=== PATIENT | female | born 1980 | race Caucasian/White ===

== ENCOUNTER 2020-12-20 09:15 | Emergency (ER) | payer MEDICAID ==
[~2020-12-20] VITALS: Ht 170.2 cm; Wt 109.0 kg
[~2020-12-20 09:15] MED LIST: BACL10TA PO; BUSP30TA PO; CELE100C PO; CIME400T PO; CYAN500L4 SL; DIVA250T PO; DIVA500T2 PO; DULO60CA7 PO; HYDR-2769 PO; LEVO50CA3 PO; OMEP40CA7 PO
--- NOTE | 2020-12-20 09:37 | PHYS DOC ---
Past Medical History Past Medical History: Other Additional Past Medical Histor: CHRONIC BACK PAIN, CELIAC,EPILEPSY Past Surgical History: , Hysterectomy, Tonsillectomy Smoking Status: Current Every Day Smoker Alcohol Use: None General Adult EDM: Chief Complaint: LOWEREXTREMITY INJURY HPI: HPI: Patient is a 40-year-old female who presents via EMS for fall. This was mechanical in nature. She was recently hospitalized and discharged at our facility after and operative reduction and internal fixation of her right tibia shaft fracture with intramedullary nail fixation on 12/11/[address] Caro. She reports she has been baseline health and doing well on discharge home. Reports she got up, got to the side of her bed in an attempt to stand to use her walker at the side of her back to ambulate, she reports suffering a left inversion ankle sprain and subsequently fell to the ground. She has acute pain to lateral left ankle and generalized pain to right lower extremity. She took all pain medications prior to sudden fall. Is on extensive medication list at home that includes Lyrica, OxyContin extended release 10 mg, and Percocet 10 Review of Systems: Review of Systems: Fourteen body systems of review of systems have been reviewed. See HPI for pertinent positives and negative responses, other samaniego all other systems are negative, non-pertinent or non-contributory Heart Score: C/O Chest Pain: No Risk Factors: Risk Factors: DM, Current or recent (<one month) smoker, HTN, HLP, family history of CAD, obesity. Risk Scores: Score 0 - 3: 2.5% MACE over next 6 weeks - Discharge Home Score 4 - 6: 20.3% MACE over next 6 weeks - Admit for Clinical Observation Score 7 - 10: 72.7% MACE over next 6 weeks - Early Invasive Strategies Allergies: Allergies: Allergies Coded Allergies Type Severity Reaction Last Updated Verified levetiracetam Allergy Intermediate 12/13/20 Yes levofloxacin Allergy Intermediate 12/13/20 Yes Physical Exam: PE: Constitutional: Well developed, well nourished, no acute distress, non-toxic appearance. HENT: Normocephalic, atraumatic, bilateral external ears normal, oropharynx moist, no oral exudates, nose normal. Eyes: PERRLA, EOMI, conjunctiva normal, no discharge. Neck: Normal range of motion, no tenderness, supple, no stridor. Cardiovascular: Heart rate regular, sinus rhythm, no murmurs rubs or gallops Lungs & Thorax: Bilateral breath sounds clear to auscultation Abdomen: Bowel sounds normal, soft, no tenderness, no masses, no pulsatile masses. Nonsurgical abdomen, no peritoneal signs Skin: Warm, dry, no erythema, no rash. Back: No tenderness, no CVA tenderness. Extremities: No cyanosis, no clubbing, ROM of left lower extremity intact, range of motion of right lower extremity limited due to pain that appears appropriate given surgical intervention performed 12/11/2020. 2+ dorsalis pedis and TP pulses bilaterally. Cap refill of all distal digits less than 3 seconds. There is mild edema of right lower extremity versus contralateral limb from knee downwards which is appropriate given recent surgical intervention, surgical sites are all well appearing with dressings all clear, dry and intact. Patient has point tenderness to left superior portion of lateral malleolus, base of right fifth metatarsal, and entirety of right lower extremity globally distal from knee. Examinations of bilateral hips and knees otherwise unremarkable Neurologic: Alert and oriented X 3, normal motor & sensory function to all x4 extremities, no focal deficits noted. Psychologic: Odd affect, judgement normal, anxious mood Current Patient Data: Vital Signs: Vital Signs Date Time Temp Pulse Resp B/P (MAP) Pulse Ox O2 Delivery O2 Flow Rate FiO2 12/20/20 09:22 97.6 84 18 117/73 (82) 93 Room Air 97.6 Vital Signs Date Time Temp Pulse Resp B/P (MAP) Pulse Ox O2 Delivery O2 Flow Rate FiO2 12/20/20 09:22 97.6 84 18 117/73 (82) 93 Room Air 97.6 EKG: EKG: [] Radiology/Procedures: Radiology/Procedures: Exam performed x-ray right tibia fibula, right foot and right ankle. HISTORY: Pain. History 70 2020. COMPARISON: X-ray right tibia fibula from 12/11/2020 Findings and impression: AP and lateral view of the right tibia fibula demonstrates interval open reduction internal fixation of a previously seen comminuted fracture mid to distal diaphysis of the tibia with 2 screws in the proximal portion and 2 screws distally. Minimally displaced fractures of the fibula are seen in the proximal and distal diaphysis. AP, lateral and oblique views of the right foot and ankle demonstrate a nondisplaced fracture proximal diaphysis of the fifth metatarsal. Vertically oriented lucency seen in the medial malleolus seen only on the AP projection perhaps represents a nondisplaced fracture.. There are surgical anchors overlying the lateral malleolus. There is extensive soft tissue swelling. Electronically signed by: Itzel Bello MD (12/20/2020 11:05 AM) [id number] Course & Med Decision Making: Course & Med Decision Making ABCs unremarkable. I disclosed entirety of ER findings and discussed most likely diagnosis of acute versus subacute right fifth metatarsal fracture and stable findings of right lower extremity status post recent surgical intervention. I discussed case with on-call orthopedic surgeon who advised immobilization is much of this possible of right foot. This is complicated given patient's numerous surgical sites. I discussed this conversation with patient, I discussed casting/splinting versus other modalities of care. Patient understood all treatment options and preferred leaving with surgical shoe/boot. She understands this could end up leading to suboptimal treatment of her right foot but would not compromise her ability to care for her surgical dressings and remaining fractures of right lower extremity. I also reviewed patient's concerning Ktracs history and history of numerous falls in the past. I discussed my concern for polypharmacy as she has prescribed numerous medications that put her at increased risk for falling. I disclosed this is likely contributing to patient's low O2 saturation at times when sleeping and at rest in addition to her longstanding history of falls. Patient reports this is being managed by her outpatient physicians, she does not want to change any of her medication regimen at this time. As such, I discussed and disclosed my concern and reiterated I would not be contributing by giving any high risk medications and so Tylenol was given this ER visit. Ultimately, plan of care discussed at length with need for close outpatient follow-up to review today's ER visit stressed, she has follow-up with orthopedic surgeon next week which I feel is appropriate. Strict return precautions were also discussed at length with good understanding by patient. Patient voiced understanding and agreement with the plan. Patient knows to come back for repeat evaluation if concerning signs or sy mptoms present prior to outpatient follow-up. Hemodynamically stable, ambulatory and well-appearing at time of disposition. Pb Disclaimer: Pb Disclaimer: This electronic medical record was generated, in whole or in part, using a voice recognition dictation system. Departure Departure Impression: Primary Impression: Nondisplaced fracture of fifth right metatarsal bone Additional Impression: Tibia/fibula fracture, shaft Disposition: 01 HOME / SELF CARE / HOMELESS Condition: STABLE Referrals: REG TAVERAS MD (PCP) Additional Instructions: It is likely that you suffered from an acute versus subacute closed fracture of your right fifth metatarsal. I disclosed I contacted the bone surgeon while in the ER and recommendations were made to immobilize this is much as possible. You decided to go home with a surgical boot and understood the importance of minimizing weightbearing to this joint. A Rest, Ice, Compression, Elevation (RICE) strategy may also be helpful in the acute phase. I did disclose my concern for your numerous prescriptions for high risk medications that could be contributing to your longstanding history and issues with falls. Please follow up with your primary doctor to discuss this further. Keep your scheduled appointment with the orthopedic surgeons next week. If any concerning signs or symptoms present prior to outpatient follow-up please do not hesitate to come back for repeat evaluation. It was a pleasure to take care of you and I wish you a speedy recovery RAYMOND SALES DO Dec 20, 2020 09:37
[2020-12-20] MEDS: ACETAMINOPHEN 500 MG TABLET PO ONE (09:45)
--- NOTE | 2020-12-20 11:07 | RAD ---
Exam performed x-ray right tibia fibula, right foot and right ankle. HISTORY: Pain. History 70 2020. COMPARISON: X-ray right tibia fibula from 12/11/2020 Findings and impression: AP and lateral view of the right tibia fibula demonstrates interval open reduction internal fixation of a previously seen comminuted fracture mid to distal diaphysis of the tibia with 2 screws in the pr oximal portion and 2 screws distally. Minimally displaced fractures of the fibula are seen in the pro ximal and distal diaphysis. AP, lateral and oblique views of the right foot and ankle demonstrate a nondisplaced fracture proxima l diaphysis of the fifth metatarsal. Vertically oriented lucency seen in the medial malleolus seen o nly on the AP projection perhaps represents a nondisplaced fracture.. There are surgical anchors over lying the lateral malleolus. There is extensive soft tissue swelling. Electronically signed by: Itzel Bello MD (12/20/2020 11:05 AM) [id number]
[2020-12-20 12:17] VITALS: BP 101/67
== END 2020-12-20 12:47 | disposition home or self-care (01) ==
LOC: MERGE 09:15 → ER 09:15
DX: S82.491A Other fracture of shaft of right fibula, initial encounter for closed fracture (principal); S82.201A Unspecified fracture of shaft of right tibia, initial encounter for closed fracture; G89.29 Other chronic pain; G40.909 Epilepsy, unspecified, not intractable, without status epilepticus; F17.200 Nicotine dependence, unspecified, uncomplicated; Z88.1 Allergy status to other antibiotic agents; Z88.8 Allergy status to other drugs, medicaments and biological substances; W18.39XA Other fall on same level, initial encounter; Y93.89 Activity, other specified; Y92.89 Other specified places as the place of occurrence of the external cause; Y99.8 Other external cause status
CPT/HCPCS: 73590; 73630; 99284; 73610-50

== ENCOUNTER → 2021-01-03 | Outpatient (CLI) | payer MEDICAID ==
[2020-12-20 12:17] VITALS: BP 101/67
[~2021-01-03] MED LIST changes: +DULO60CA6 PO; -DULO60CA7 PO
--- NOTE | 2021-01-14 09:07 | EEG ---
DATE OF SERVICE: 01/03/2021 EEG NUMBER: . OBJECTIVE: The patient is a 40-year-old female with a history of epilepsy. DESCRIPTION: This is a digital study. Electrodes were placed according to the international 10-20 system. Bipolar and referential montages are available. Activation procedures typically include hyperventilation and intermittent photic stimulation. INTERPRETATION: The waking background consists of 9 -- 10 Hz, 50-100 microvolt activity, symmetrically distributed over parietooccipital regions and reactive to eye opening. Hyperventilation and intermittent photic stimulation are noncontributory. Stage 1 sleep was achieved with normal electroencephalogram patterns. IMPRESSION: This electroencephalogram with the patient awake and asleep is within normal limits. There is no focal, paroxysmal, or epileptiform activity. Thank you for letting us help with the patient's care. BRIDGER DR: Britney TID: [id number] CC: REG TAVERAS
== END ==
LOC: MERGE 08:43 → RT 08:43
PROVIDERS: ATTEND Psychiatry & Neurology Neurology with Special Qualifications in Child Neurology
DX: G40.909 Epilepsy, unspecified, not intractable, without status epilepticus (principal)
CPT/HCPCS: 95816